=== PATIENT | male | born 1930 | race Caucasian/White ===

== ENCOUNTER 2018-12-10 08:25 | Day surgery (SDC) | payer OTHER ==
[~2018-12-10] VITALS: Ht 172.7 cm; Wt 92.1 kg
[~2018-12-10 08:25] MED LIST: ALLO300 PO; ATEN25 PO; Glipizide-Metf1 EAC2 PO; LOTENSIN HCT 21 EAC1 PO; RANI150 PO; SIMV40 PO
--- NOTE | 2018-12-10 09:47 | NUR ---
12/10/18 0947 Izzy Shane 1 IV MISS IN RH BY RONNY VALVE 1 GOOD IV IN RH BY RONNY PT TOW
--- NOTE | 2018-12-10 10:47 | NUR ---
12/10/18 1047 Winsome Mckeon DILATORS: BALLOON SIZES 10, 12; ATTEMPTED SAVORY 20, UNABLE TO PASS [place] SIZES 54, 60.
--- NOTE | 2018-12-10 11:06 | NUR ---
12/10/18 1106 Winsome Mckeon WHEN ASKED PT. IF HE HAD ANY SORE THROAT PT. STATED, "NOT SORE, SORE, BUT FEELS LIKE SOMETHINGS BEEN DONE." PT. DENIES TROUBLING SWALLOWING. PT. DRINKING APPLE JUICE.
== END 2018-12-10 11:17 | disposition home or self-care (01) ==
LOC: ORSCSDS 08:25
PROVIDERS: Internal Medicine Gastroenterology
PROC: 0D758ZZ Dilation of Esophagus, Via Natural or Artificial Opening Endoscopic (ICD-10-PCS; principal; 2018-12-10 10:15)
DX: R13.10 Dysphagia, unspecified (principal); K22.2 Esophageal obstruction; K20.9 Esophagitis, unspecified; R09.89 Other specified symptoms and signs involving the circulatory and respiratory systems; R12 Heartburn; I10 Essential (primary) hypertension; E11.9 Type 2 diabetes mellitus without complications; Z87.891 Personal history of nicotine dependence; Z79.84 Long term (current) use of oral hypoglycemic drugs; Z79.899 Other long term (current) drug therapy
CPT/HCPCS: 82947; C1726; J2704; J7120

== ENCOUNTER → 2020-05-11 | Outpatient (CLI) | payer OTHER | END | disposition home or self-care (01) | LOC: PLD 15:23 → LAB SHORT 15:23 | DX: C44.311 Basal cell carcinoma of skin of nose (principal); L57.0 Actinic keratosis; L82.1 Other seborrheic keratosis; L57.8 Other skin changes due to chronic exposure to nonionizing radiation | CPT/HCPCS: 88305 ==

== ENCOUNTER 2020-07-02 11:47 | Emergency (ER) | payer OTHER ==
[~2020-07-02] VITALS: Ht 172.7 cm; Wt 95.2 kg
== END 2020-07-02 16:26 | disposition home or self-care (01) ==
LOC: ER 11:47
DX: D32.0 Benign neoplasm of cerebral meninges (principal); E11.9 Type 2 diabetes mellitus without complications; I10 Essential (primary) hypertension; J45.909 Unspecified asthma, uncomplicated; Z87.898 Personal history of other specified conditions; Z79.84 Long term (current) use of oral hypoglycemic drugs; Z79.899 Other long term (current) drug therapy; Z88.6 Allergy status to analgesic agent
CPT/HCPCS: 70450; 99284-25

== ENCOUNTER 2020-08-14 13:46 | Inpatient (IN) | payer OTHER ==
[~2020-08-14] VITALS: Ht 172.7 cm; Wt 81.7 kg
[~2020-08-14 13:46] MED LIST changes: -ALLO300 PO; -ATEN25 PO; -Glipizide-Metf1 EAC2 PO; -LOTENSIN HCT 21 EAC1 PO; -SIMV40 PO
[2020-08-14 14:12] LABS: Source, Urine Catheter
[2020-08-14 14:21] LABS: Appearance, Urine Clear (Clear); Bilirubin, Urine Neg (Neg); Blood, Urine 5+ (Neg); Color, Urine Yellow (P-Yellow); Glucose Qualitative, Urine 2+ (Neg); Ketones, Urine 1+ (Neg); Leukocyte Esterase, Urine Neg (Neg); Nitrite, Urine Neg (Neg); Protein, Urine 3+ (Neg); Specific Gravity, Urine 1.015 (1.003-1.022); Urobilinogen, Urine NORM (Normal)
[2020-08-14 14:23] LABS: BASOPHILS ABSOLUTE AUTO 0.08 K/mm3 (0.00-0.23); BASOPHILS PERCENT AUTO 0 % (0-2); EOSINOPHILS ABSOLUTE AUTO 0.04 K/mm3 (0.00-0.68); EOSINOPHILS PERCENT AUTO 0 % (0-6); Hematocrit 50.3 % (37.0-53.0); Hemoglobin 15.6 g/dL (13.5-17.5); IMMATURE GRAN ABSOLUTE AUTO 0.43 K/mm3 (0.00-0.10); IMMATURE GRAN PERCENT AUTO 2 % (0-1); LYMPHOCYTES ABSOLUTE AUTO 1.18 K/mm3 (0.84-5.20); LYMPHOCYTES PERCENT AUTO 6 % (21-46); MONOCYTES ABSOLUTE AUTO 2.49 K/mm3 (0.16-1.47); MONOCYTES PERCENT AUTO 12 % (4-13); Mean Corpuscular HGB 27.2 pg (26.0-34.0); Mean Corpuscular Volume 88 fL (80-100); NEUTROPHILS ABSOLUTE AUTO 16.38 K/mm3 (1.96-9.15); NEUTROPHILS PERCENT AUTO 80 % (41-73); Platelet Count 374 K/mm3 (150-400); RDW Coefficient Variation 15.5 % (11.7-14.2); RDW Standard Deviation 49.6 fL (35.1-46.3); Red Blood Cell Count 5.73 M/mm3 (4.30-5.90)
[2020-08-14 14:36] LABS: Bacteria Rare /hpf; Red Blood Cells, Urine TNTC /hpf (0-2); Squamous Epithelial Cells Not Seen /hpf (Few); White Blood Cells, Urine 0-2 /hpf (0-5)
[2020-08-14 14:47] LABS: Albumin/Globulin Ratio 0.7 (0.8-1.8); Bilirubin, Total 0.6 mg/dL (0.1-1.0); Bun/Creatinine Ratio 18.8 (12.0-20.0); Calcium, Blood 8.8 mg/dL (8.5-10.1); Creatinine, Blood 1.49 mg/dL (0.60-1.20); Globulin, Blood 4.2 g/dL (2.2-4.0); Potassium, Blood 4.4 mmol/L (3.5-5.5); Total Protein, Blood 7.2 g/dL (6.4-8.2)
[2020-08-14] MEDS ORDERED: DEPAKOTE ER500 MG PO (16:10)
[2020-08-14] MEDS ORDERED: ALLO300 PO (16:11)
[2020-08-14] MEDS ORDERED: SIMV40 PO (16:11)
[2020-08-14] MEDS ORDERED: ATEN25 PO (16:11)
[2020-08-14] MEDS ORDERED: LOTENSIN HCT 21 EAC2 PO (16:12)
[2020-08-14] MEDS ORDERED: GLIPIZIDE-METF1 EAC1 PO (16:12)
[2020-08-14] MEDS ORDERED: PANT20 PO (16:14)
[2020-08-14 17:06] LABS: Influenza A, PCR Negative (NEGATIVE); Influenza B, PCR Negative (NEGATIVE); Resp Syncytial Virus, PCR Negative (NEGATIVE); SARS-Cov-2 (COVID-19) PCR, MMC Negative (NEGATIVE)
--- NOTE | 2020-08-14 19:15 | NUR ---
ASSUMED CARE RECEIVED REPORT FROM AMMY VELÁZQUEZ. REPORTED THAT PT HAD ARRIVED TO FLOOR RECENTLY. PT RESTING COMFORTABLY, NO S/S ACUTE DISTRESS NOTED, RESPS E/U. PT DENIES PAIN OR NEEDS AT THIS TIME. CALL LIGHT, POSSESSIONS IN REACH, BED IN LOW POSITION WITH ALARMS ON. WCTM.
--- NOTE | 2020-08-14 20:23 | NUR ---
a+o, call light in reach, rm air, saline locked, bsr shared with noc nurse, pt arrived after 1829
--- NOTE | 2020-08-14 22:25 | NUR ---
THIS RN SPEAKING TO PT DAUGHTER, UPDATING ON PT CONDITION. VERBAL CONSENT OBTAINED FROM PT. DAUGHTER REQUESTING TO BE CONTACTED FOR CHANGES OR UPDATES IN PT CONDITION; PLANS TO BE IN TOWN TO SEE PT ON SUNDAY. QUESTIONS AND CONCERNS ADDRESSED, PROVIDED LISTENING EAR. DAUGHTER WILL CALL IN AM AFTER BSR FOR AN UPDATE. CONTINUE TO MONITOR.
[2020-08-14 23:48] LABS: Adenovirus Not Detected (NOT DETECT); Coronavirus 229E Not Detected (NOT DETECT); Coronavirus HKU1 Not Detected (NOT DETECT); Coronavirus NL63 Not Detected (NOT DETECT); Coronavirus OC43 Not Detected (NOT DETECT)
[2020-08-14 23:49] LABS: Bordetella pertussis Not Detected (NOT DETECT); Chlamydophila pneumoniae Not Detected (NOT DETECT); Human Metapneumovirus Not Detected (NOT DETECT); Human Rhinovirus/Enterovirus Not Detected (NOT DETECT); Influenza A/2009-H1 Not Detected (NOT DETECT); Influenza A/H1 Not Detected (NOT DETECT); Influenza A/H3 Not Detected (NOT DETECT); Influenza B Not Detected (NOT DETECT); Mycoplasma pneumoniae Not Detected (NOT DETECT); Parainfluenza Virus 1 Not Detected (NOT DETECT); Parainfluenza Virus 2 Not Detected (NOT DETECT); Parainfluenza Virus 3 Not Detected (NOT DETECT); Parainfluenza Virus 4 Not Detected (NOT DETECT); Respiratory Syncytial Virus Not Detected (NOT DETECT); SARS-Cov-2 (COVID-19), BioFire Not Detected (NOT DETECT)
[2020-08-15 04:19] LABS: BASOPHILS ABSOLUTE AUTO 0.08 K/mm3 (0.00-0.23); BASOPHILS PERCENT AUTO 0 % (0-2); EOSINOPHILS ABSOLUTE AUTO 0.01 K/mm3 (0.00-0.68); EOSINOPHILS PERCENT AUTO 0 % (0-6); Hematocrit 46.8 % (37.0-53.0); Hemoglobin 14.4 g/dL (13.5-17.5); IMMATURE GRAN ABSOLUTE AUTO 0.36 K/mm3 (0.00-0.10); IMMATURE GRAN PERCENT AUTO 2 % (0-1); LYMPHOCYTES ABSOLUTE AUTO 2.62 K/mm3 (0.84-5.20); LYMPHOCYTES PERCENT AUTO 14 % (21-46); MONOCYTES ABSOLUTE AUTO 2.66 K/mm3 (0.16-1.47); MONOCYTES PERCENT AUTO 14 % (4-13); Mean Corpuscular HGB 26.4 pg (26.0-34.0); Mean Corpuscular HGB Conc 30.8 g/dL (31.5-36.5); Mean Corpuscular Volume 86 fL (80-100); Mean Platelet Volume 10.8 fL (9.1-12.4); NEUTROPHILS ABSOLUTE AUTO 13.47 K/mm3 (1.96-9.15); NEUTROPHILS PERCENT AUTO 70 % (41-73); Platelet Count 417 K/mm3 (150-400); RDW Coefficient Variation 15.5 % (11.7-14.2); Red Blood Cell Count 5.45 M/mm3 (4.30-5.90)
[2020-08-15 04:38] LABS: Bun/Creatinine Ratio 19.6 (12.0-20.0); Calcium, Blood 8.6 mg/dL (8.5-10.1); Creatinine, Blood 1.48 mg/dL (0.60-1.20); Potassium, Blood 3.7 mmol/L (3.5-5.5)
--- NOTE | 2020-08-15 05:52 | NUR ---
SHIFT SUMMARY PT A&O TO SELF, SURROUNDINGS, FAMILY. PLEASANT AND COOPERATIVE. ASLEEP AT THIS TIME, NO S/S ACUTE DISTRESS NOTED. WAS MONITORED EVERY 1-2 HOURS WITH NEEDS MET. PT NPO D/T ASPIRATION RISK, PT UNHAPPY ABOUT THIS. PROVIDED LISTENING EAR. AWAITING ST EVAL. PT APPEARS INCREASINGLY CONFUSED AT TIMES, ASKING TO GET OOB AND WALK AROUND ROOM; RE-DIRECTABLE. VS REVIEWED, HYPERTENSIVE; MEDICATED PER EMAR X2 THIS SHIFT. BP'S STABLE AT THIS TIME. PT DENIES PAIN OR NEEDS AT THIS TIME. CALL LIGHT, POSSESSIONS IN REACH, BED IN LOW POSITION WITH ALARMS ON. IVF ONGOING. WCTM, PROVIDE CARE UNTIL REPORT GIVEN TO ONCOMING RN.
--- NOTE | 2020-08-15 17:28 | NUR ---
PT IS AOX3 AND COOPERATIVE OF CARE. PT DOING WELL AND DENIES ANY PAIN. PT HAS BEEN ABLE TO WORK WITH PT TODAY AND IS AMBULATING WITH WALKER AND GAITBELT TO RESTROOM. PT HAS ALSO BEEN UP IN CHAIR. PT IS USING HIS CALL LIGHT APPROPRIATELY. BED ALARM IS IN PLACE AND CALL LIGHT IS WITHIN REACH.
--- NOTE | 2020-08-15 18:02 | NUR ---
RN BEDSIDE SWALLOW EVAL: PER DR. WILLINGHAM, RN TO ASSESS SWALLOW AND FEED THE PT THIS EVENING IF ABLE. PT ABLE TO DRINK APPLE JUICE FROM CUP WITH AND WITHOUT A STRAW SITTING UPRIGHT IN BED. ALSO TRIALED APPLESAUCE, PUDDING, AND CRACKERS WITH NO COUGHING NOTED. PT ABLE TO SAY "AHH" AFTER EACH BITE WITH NO WETNESS/GURGLE NOTED. PT ABLE TO FOLLOW DIRECTIONS AND FEED SELF. REQUESTED HALF A SANDWICH FOR DINNER. THIS RN ORDERED ADA BREAKFAST FOR TOMORROW PT STATED HE DIDN'T WANT A TRAY TONIGHT. UPDATED BEDSIDE RN SHIMA.
--- NOTE | 2020-08-15 19:00 | NUR ---
ASSUMED CARE RECEIVED REPORT FROM AMMY RONQUILLO. ASSUMED CARE OF PT. RESTING COMFORTABLY, NO S/S ACUTE DISTRESS NOTED, ASLEEP AT THIS TIME. CALL LIGHT, POSSESSIONS IN REACH, BED IN LOW POSITION WITH ALARMS ON . TM.
--- NOTE | 2020-08-15 23:45 | NUR ---
SPOKE TO DR. BERGER REGARDING PT'S HR TRENDING IN THE 50'S. PARAMETERS RECEIVED FOR YEISON. CONTINUE TO MONITOR.
[2020-08-16 05:38] LABS: BASOPHILS ABSOLUTE AUTO 0.09 K/mm3 (0.00-0.23); BASOPHILS PERCENT AUTO 1 % (0-2); EOSINOPHILS PERCENT AUTO 1 % (0-6); Hematocrit 43.7 % (37.0-53.0); Hemoglobin 13.9 g/dL (13.5-17.5); IMMATURE GRAN ABSOLUTE AUTO 0.51 K/mm3 (0.00-0.10); IMMATURE GRAN PERCENT AUTO 5 % (0-1); LYMPHOCYTES ABSOLUTE AUTO 2.37 K/mm3 (0.84-5.20); LYMPHOCYTES PERCENT AUTO 22 % (21-46); MONOCYTES ABSOLUTE AUTO 1.66 K/mm3 (0.16-1.47); MONOCYTES PERCENT AUTO 16 % (4-13); Mean Corpuscular HGB 27.3 pg (26.0-34.0); Mean Corpuscular HGB Conc 31.8 g/dL (31.5-36.5); Mean Corpuscular Volume 86 fL (80-100); Mean Platelet Volume 10.8 fL (9.1-12.4); NEUTROPHILS ABSOLUTE AUTO 5.97 K/mm3 (1.96-9.15); NEUTROPHILS PERCENT AUTO 56 % (41-73); Platelet Count 361 K/mm3 (150-400); RDW Coefficient Variation 15.7 % (11.7-14.2); RDW Standard Deviation 48.6 fL (35.1-46.3); Red Blood Cell Count 5.09 M/mm3 (4.30-5.90)
[2020-08-16 06:13] LABS: Albumin, Blood 2.6 g/dL (3.4-5.0); Albumin/Globulin Ratio 0.7 (0.8-1.8); Bilirubin, Total 0.3 mg/dL (0.1-1.0); Bun/Creatinine Ratio 25.7 (12.0-20.0); Calcium, Blood 8.3 mg/dL (8.5-10.1); Creatinine, Blood 1.48 mg/dL (0.60-1.20); Globulin, Blood 3.5 g/dL (2.2-4.0); Potassium, Blood 3.7 mmol/L (3.5-5.5); Thyroid Stimulating Hormone 3.45 uIU/mL (0.360-4.800); Total Protein, Blood 6.1 g/dL (6.4-8.2)
--- NOTE | 2020-08-16 06:41 | NUR ---
SHIFT SUMMARY PT ASLEEP, HAS BEEN DROWSY T/O MUCH OF THE NIGHT; EASILY AROUSABLE, PLEASANT AND COOPERATIVE. VS REVIEWED, BP'S AND HR STABLE. PT HR APPEARS TO TREND IN 50'S WHEN ASLEEP, PT ASYMPTOMATIC. CBGS STABLE, NO COVERAGE NEEDED T/O NIGHT, TAKES SOFT DIET W/O DIFFICULTY, NO S/S ASPIRATION. DENIES PAIN OR DISCOMFORT. APPEARS COMFORTABLE AT THIS TIME. DENIES NEEDS. CALL LIGHT AND POSSESSIONS IN REACH, BED IN LOW POSITION WITH ALARMS ON. WCTM, REPORT OFF TO ONCOMING RN.
[2020-08-16] MEDS ORDERED: AMOCLA500 PO (15:37)
--- NOTE | 2020-08-16 17:03 | NUR ---
PT AO X4 AND COOPERATIVE OF CARE. PT DISCHARGED HOME WITH DAUGHTER TO LIVE WITH HIM AND HIS WHILE HE GETS BETTER. DAUGHTER TRANSPORTED PT HOME. ALL PAPERWORK WAS REVIEWED AND EDUCATIONAL MATERIAL SENT WITH PT. NO DISTRESS WAS NOTED AND PT HAS BEEN WORKING WELL WITH PHYSICAL THERAPY AND OT TODAY. PERSONAL BELONGINGS COLLECTED AND TAKEN WITH PT.
== END 2020-08-16 16:47 | disposition home health service (06) | DRG 871 ==
LOC: ER 13:46 → MEDS 16:35
PROVIDERS: Internal Medicine; Nurse Practitioner Acute Care; Physician Assistant; ADMIT Internal Medicine
DX: A41.9 Sepsis, unspecified organism (principal); J18.9 Pneumonia, unspecified organism; G93.41 Metabolic encephalopathy; I12.9 Hypertensive chronic kidney disease with stage 1 through stage 4 chronic kidney disease, or unspecified chronic kidney disease; Z51.5 Encounter for palliative care; E11.22 Type 2 diabetes mellitus with diabetic chronic kidney disease; R13.10 Dysphagia, unspecified; N18.31 Chronic kidney disease, stage 3a; Z91.81 History of falling; E78.5 Hyperlipidemia, unspecified; K21.9 Gastro-esophageal reflux disease without esophagitis; E66.9 Obesity, unspecified; Z68.30 Body mass index [BMI] 30.0-30.9, adult; Z87.891 Personal history of nicotine dependence; Z20.828 Contact with and (suspected) exposure to other viral communicable diseases
CPT/HCPCS: 0202U; 0241U; 36415; 71045; 80048; 80053; 81001; 82607; 82746; 82947; 83605; 84443; 84484; 85025; 92610; 93005; 93010; 94640; 94760; 94762; 96365; 96367; 97110; 97116; 97161; 97166; 97535; 99285-25; A9270-GY; C1751; C9113; J0360; J0456; J0696; J1650; J7030; J7050

== ENCOUNTER → 2020-09-01 | Outpatient (CLI) | payer OTHER ==
[~2020-09-01] MED LIST changes: +ALLO300 PO; +AMLO10 PO; +AMOCLA500 PO; +ATEN25 PO; +DEPAKOTE ER500 MG PO; +GLIPIZIDE-METF1 EAC1 PO; +HYDRA25 PO; +LOSA50 PO; +LOTENSIN HCT 21 EAC2 PO; +PANT20 PO; +SIMV40 PO
[2020-09-01 12:32] LABS: Source, Urine Clean Catch
[2020-09-01 13:07] LABS: Appearance, Urine Clear (Clear); Bilirubin, Urine Neg (Neg); Blood, Urine Neg (Neg); Color, Urine Yellow (P-Yellow); Glucose Qualitative, Urine Neg (Neg); Ketones, Urine Neg (Neg); Leukocyte Esterase, Urine 1+ (Neg); Nitrite, Urine Neg (Neg); Protein, Urine 3+ (Neg); Specific Gravity, Urine 1.015 (1.003-1.022); Urobilinogen, Urine NORM (Normal)
[2020-09-01 13:38] LABS: Bacteria Rare /hpf; Mucus Light (0-Heavy); Red Blood Cells, Urine Not Seen /hpf (0-2); Squamous Epithelial Cells Rare /hpf (Few); White Blood Cells, Urine 0-2 /hpf (0-5)
== END | disposition home or self-care (01) ==
LOC: LAB HH 12:30
PROVIDERS: Family Medicine
DX: N39.0 Urinary tract infection, site not specified (principal)
CPT/HCPCS: 81001; 87086

== ENCOUNTER 2020-10-29 13:27 | Emergency (ER) | payer OTHER ==
[~2020-10-29] VITALS: Ht 182.9 cm; Wt 95.2 kg
[~2020-10-29 13:27] MED LIST changes: -AMLO10 PO; -HYDRA25 PO; -LOSA50 PO
[2020-10-29] MEDS ORDERED: AMLO10 PO (13:41)
[2020-10-29] MEDS ORDERED: LOSA50 PO (13:41)
[2020-10-29] MEDS ORDERED: HYDRA25 PO (13:42)
[2020-10-29 14:00] LABS: Calcium, Ionized (POC) 1.18 mmol/L (1.10-1.46); Chloride (POC) 107 mmol/L (98-108); Creatinine (POC) 1.5 mg/dL (0.8-1.3); Glucose (ISTAT POC) 148 mg/dL (70-99); Hemoglobin (POC) 14.3 g/dL (13.5-17.5); Potassium (POC) 4.2 mmol/L (3.5-5.5); Sodium (POC) 141 mmol/L (135-148); Total CO2 (POC) 26 mmol/L (21-32)
== END 2020-10-29 15:35 | disposition home or self-care (01) ==
LOC: ER 13:27
PROVIDERS: Emergency Medicine
DX: S09.90XA Unspecified injury of head, initial encounter (principal); I10 Essential (primary) hypertension; E78.5 Hyperlipidemia, unspecified; E11.9 Type 2 diabetes mellitus without complications; Z88.6 Allergy status to analgesic agent; W18.30XA Fall on same level, unspecified, initial encounter
CPT/HCPCS: 70450; 80047; 85014; 99284-25

== ENCOUNTER 2021-03-28 09:55 | Inpatient (IN) | payer OTHER, MEDICARE ==
[~2021-03-28] VITALS: Ht 172.7 cm; Wt 90.7 kg
[~2021-03-28 09:55] MED LIST changes: +AMLO10 PO; +HYDRA25 PO; +LOSA50 PO
[2021-03-28 14:12] LABS: BASOPHILS ABSOLUTE AUTO 0.11 K/mm3 (0.00-0.23); BASOPHILS PERCENT AUTO 1 % (0-2); EOSINOPHILS ABSOLUTE AUTO 0.32 K/mm3 (0.00-0.68); EOSINOPHILS PERCENT AUTO 3 % (0-6); Hematocrit 49.3 % (37.0-53.0); Hemoglobin 14.7 g/dL (13.5-17.5); IMMATURE GRAN PERCENT AUTO 2 % (0-1); LYMPHOCYTES PERCENT AUTO 20 % (21-46); MONOCYTES ABSOLUTE AUTO 1.42 K/mm3 (0.16-1.47); MONOCYTES PERCENT AUTO 13 % (4-13); Mean Corpuscular HGB 23.3 pg (26.0-34.0); Mean Corpuscular HGB Conc 29.8 g/dL (31.5-36.5); Mean Corpuscular Volume 78 fL (80-100); Mean Platelet Volume 11.5 fL (9.1-12.4); NEUTROPHILS ABSOLUTE AUTO 7.01 K/mm3 (1.96-9.15); NEUTROPHILS PERCENT AUTO 62 % (41-73); Platelet Count 566 K/mm3 (150-400); RDW Coefficient Variation 19.2 % (11.7-14.2); RDW Standard Deviation 50.3 fL (35.1-46.3); White Blood Cell Count 11.36 K/mm3 (4.00-11.30)
[2021-03-28 14:32] LABS: Albumin, Blood 3.2 g/dL (3.4-5.0); Albumin/Globulin Ratio 0.7 (0.8-1.8); Calcium, Blood 9.3 mg/dL (8.5-10.1); Creatinine, Blood 1.84 mg/dL (0.60-1.20); Globulin, Blood 4.6 g/dL (2.2-4.0); Potassium, Blood 4.4 mmol/L (3.5-5.5); Total Protein, Blood 7.8 g/dL (6.4-8.2)
[2021-03-28 14:54] LABS: SARS-Cov-2 (COVID-19) PCR, MMC NEGATIVE (NEGATIVE)
[2021-03-28] MEDS ORDERED: ALLO300 PO (17:16)
[2021-03-28] MEDS ORDERED: Fish Oil 340 mg-1,00 PO (17:17)
[2021-03-28] MEDS ORDERED: GLIP5 PO (17:18)
[2021-03-28] MEDS ORDERED: HYDCHL50 PO (17:19)
[2021-03-28] MEDS ORDERED: Glucophage 500 mg PO (17:21)
[2021-03-28] MEDS ORDERED: ZOCOR40 MG PO (17:22)
[2021-03-28] MEDS ORDERED: SPIR25 PO (18:08)
[2021-03-28] MEDS ORDERED: TAMS.4ER PO (18:08)
--- NOTE | 2021-03-29 04:22 | NUR ---
SHIFT SUMMARY NEW ER ADMIT THIS SHIFT (2049) NO ACUTE CHANGES SINCE ASSUMING CARE, NO C/O ANY KIND, PT IS A&OX4, DENIES PAIN/NAUSEA, PLEASANT, COOPERATIVE W/CARE, NPO SINCE ADMIT, IV FLUIDS INFUSING, IND W/URINAL IN BED, SLEPT T/O THE NIGHT & AT THIS TIME, CALL LIGHT IN REACH, WILL CONT TO MONITOR UNTIL REPORT GIVEN TO DAY RN.
[2021-03-29 05:13] LABS: BASOPHILS PERCENT AUTO 1 % (0-2); EOSINOPHILS ABSOLUTE AUTO 0.39 K/mm3 (0.00-0.68); EOSINOPHILS PERCENT AUTO 4 % (0-6); Hematocrit 44.6 % (37.0-53.0); Hemoglobin 13.6 g/dL (13.5-17.5); IMMATURE GRAN ABSOLUTE AUTO 0.24 K/mm3 (0.00-0.10); IMMATURE GRAN PERCENT AUTO 2 % (0-1); LYMPHOCYTES PERCENT AUTO 20 % (21-46); MONOCYTES ABSOLUTE AUTO 1.44 K/mm3 (0.16-1.47); MONOCYTES PERCENT AUTO 15 % (4-13); Mean Corpuscular HGB 23.3 pg (26.0-34.0); Mean Corpuscular HGB Conc 30.5 g/dL (31.5-36.5); Mean Corpuscular Volume 76 fL (80-100); Mean Platelet Volume 10.3 fL (9.1-12.4); NEUTROPHILS ABSOLUTE AUTO 5.73 K/mm3 (1.96-9.15); NEUTROPHILS PERCENT AUTO 58 % (41-73); Platelet Count 501 K/mm3 (150-400); RDW Coefficient Variation 18.8 % (11.7-14.2); RDW Standard Deviation 47.7 fL (35.1-46.3); Red Blood Cell Count 5.84 M/mm3 (4.30-5.90)
[2021-03-29 05:31] LABS: Bun/Creatinine Ratio 19.1 (12.0-20.0); Calcium, Blood 8.7 mg/dL (8.5-10.1); Creatinine, Blood 1.41 mg/dL (0.60-1.20); Potassium, Blood 3.8 mmol/L (3.5-5.5)
--- NOTE | 2021-03-29 10:16 | NUR ---
Pt resting in bed upon arrival. Pt denies pain, anxiety, nausea, and dyspnea at this time. Pt some what withdrawn and does not engage much in conversation. Reviewed plan of care with Pt and engaged in therapeutic discussion regarding code status. Gentle education on life sustaining treatments including risk factors and implications of CPR. Pt reports his wishes remain the same and is ok with CPR but does not want intubation. Pt reports that he will let staff know if his wishes change. Pt remains withdrawn and this RN ended visit. Palliative Care will remain available if called upon.
--- NOTE | 2021-03-29 14:16 | NUR ---
03/29/21 1416 Rosalie Zeng History, Chart, Medications and Allergies reviewed before start of procedure.Patient confirms NPO status and agrees with scheduled surgery.MONITOR INTACT WITH CONTINUOUS PULSE OXIMETRY AND INTERMITTENT BP.3-LEAD EKG REVIEWED WITH PHYSICIAN PRIOR TO START OF PROCEDURE.O2 VIA N/C INTACT THROUGHOUT SEDATION/PROCEDURE.PATIENT DETERMINED TO BE ASA APPROPRIATE FOR PROPOFOL SEDATION PRIOR TO START OF PROCEDURE BY
--- NOTE | 2021-03-29 17:12 | NUR ---
SHIFT SUMMARY PATIENT ALERT AND ORIENTED X4. PATIENT DENIES PAIN/NAUSEA DURING SHIFT. PATIENT HAD AN ENDOSCOPY DONE OF ESOPHAGEAL DILILATION. TOLERATED WELL. PATIENT IS COOPERATIVE WITH CARE. PATIENT IS A ONE PERSON ASSIST TO BEDSIDE COMMODE AND USES BEDSIDE URINAL. VITAL SIGNS REVIEWED. CALL LIGHT IN REACH AND BED IS LOCKED AND LOWEST POSITION.
--- NOTE | 2021-03-30 04:48 | NUR ---
SHIFT SUMMARY: PT IS ALERT AND ORIENTED. PT IS CALM AND COOPERATIVE WITH CARE. PT CALLS APPROPRIATELY. PT IS A STANDBY ASSIST. PT CONTINUES TO BE NPO PENDING BARIUM SWALLOW EVALUTAION. PT DENIES PAIN, NAUSEA, VOMITING, AND SOB. PT SLEPT MUCH OF THE NIGHT WHEN NOT DISTURBED. NO ACUTE CHANGES OR COMPLICATIONS THIS SHIFT. BED IN LOW POSITION, CALL LIGHT WITHIN REACH. WILL REPORT TO DAY NURSE.
[2021-03-30 06:17] LABS: Bun/Creatinine Ratio 16.1 (12.0-20.0); Calcium, Blood 9.2 mg/dL (8.5-10.1); Creatinine, Blood 1.37 mg/dL (0.60-1.20); Potassium, Blood 3.9 mmol/L (3.5-5.5)
--- NOTE | 2021-03-30 13:01 | NUR ---
SWALLOW EVAL faxed to [facility] along with d'c meds. APPOINTMENT MADE FOR F/U W/ 04/04/21 AT 10:50. PATIENT AWARE OF APPT AND NO CHANGES IN MEDS.REVIEW D'C WITH PATIENT ANSWER ALL QUESTIONS. REVIEWS SWALLOWING PRECAUTIONS. PATIENT VERBALIZES UNDERSTANDING. DAUGHTER TO ARRANGE RIDE BACK TO [facility]. AWAITING RIDE. TROLLEY COACH DRIVER ASSIST IN GETTING PATIENT DRESSED. HAD LUNCH HERE WITHOUT DIFFICULTY.
== END 2021-03-30 13:25 | disposition home or self-care (01) | DRG 392 ==
LOC: ER 09:55 → ERHOLD 09:56 → MEDS 09:56
PROVIDERS: Internal Medicine Gastroenterology; Physician Assistant; Student in an Organized Health Care Education/Training Program; ADMIT Internal Medicine
PROC: 0D718ZZ Dilation of Upper Esophagus, Via Natural or Artificial Opening Endoscopic (ICD-10-PCS; principal; 2021-03-29 14:00)
DX: R13.13 Dysphagia, pharyngeal phase (principal); N17.9 Acute kidney failure, unspecified; K21.9 Gastro-esophageal reflux disease without esophagitis; K22.8 Other specified diseases of esophagus; I12.9 Hypertensive chronic kidney disease with stage 1 through stage 4 chronic kidney disease, or unspecified chronic kidney disease; E78.5 Hyperlipidemia, unspecified; J45.909 Unspecified asthma, uncomplicated; E11.22 Type 2 diabetes mellitus with diabetic chronic kidney disease; K44.9 Diaphragmatic hernia without obstruction or gangrene; Z20.822 Contact with and (suspected) exposure to COVID-19; N18.31 Chronic kidney disease, stage 3a; M10.9 Gout, unspecified; Z86.011 Personal history of benign neoplasm of the brain; Z98.890 Other specified postprocedural states; Z86.010 Personal history of colon polyps; Z79.84 Long term (current) use of oral hypoglycemic drugs; Z79.899 Other long term (current) drug therapy; Z98.49 Cataract extraction status, unspecified eye; Z87.891 Personal history of nicotine dependence; Z88.6 Allergy status to analgesic agent
CPT/HCPCS: 36415; 70360; 74230; 80048; 80053; 82947; 85025; 92611; 96360; 96361; 96374; 96375; 99285-25; A9270; C9113; G0378; J0360; J2704; J7030; J7120; U0004

== ENCOUNTER → 2021-07-12 | Outpatient (CLI) | payer OTHER ==
[~2021-07-12] MED LIST changes: +Fish Oil 340 mg-1,00 PO; +GLIP5 PO; +Glucophage 500 mg PO; +HYDCHL50 PO; +SPIR25 PO; +TAMS.4ER PO; +ZOCOR40 MG PO
[2021-07-12 15:35] LABS: Appearance, Urine Clear (Clear); Bilirubin, Urine Neg (Neg); Blood, Urine Neg (Neg); Color, Urine Yellow (P-Yellow); Glucose Qualitative, Urine Neg (Neg); Ketones, Urine Neg (Neg); Leukocyte Esterase, Urine 1+ (Neg); Nitrite, Urine Neg (Neg); Protein, Urine 2+ (Neg); Specific Gravity, Urine 1.015 (1.003-1.022); Urobilinogen, Urine NORM (Normal)
[2021-07-12 15:49] LABS: Bacteria Few /hpf; Red Blood Cells, Urine 0-2 /hpf (0-2); Squamous Epithelial Cells Rare /hpf (Few)
== END ==
LOC: LAB SHORT 13:30
PROVIDERS: Family Medicine
DX: R30.0 Dysuria (principal); Z88.8 Allergy status to other drugs, medicaments and biological substances
CPT/HCPCS: 81001

== ENCOUNTER → 2021-08-24 | Outpatient (CLI) | payer OTHER ==
[2021-08-24 13:21] LABS: Appearance, Urine Clear (Clear); Bilirubin, Urine Neg (Neg); Blood, Urine Neg (Neg); Color, Urine Yellow (P-Yellow); Glucose Qualitative, Urine 4+ (Neg); Ketones, Urine Neg (Neg); Leukocyte Esterase, Urine Neg (Neg); Nitrite, Urine Neg (Neg); Protein, Urine 3+ (Neg); Urobilinogen, Urine NORM (Normal)
[2021-08-24 13:49] LABS: Red Blood Cells, Urine 0-2 /hpf (0-2); White Blood Cells, Urine 0-2 /hpf (0-5)
[2021-08-24 13:50] LABS: Amorphous Light (0-Heavy); Bacteria Rare /hpf; Mucus Light (0-Heavy); Squamous Epithelial Cells Rare /hpf (Few)
== END | disposition home or self-care (01) ==
LOC: LAB SHORT 10:35
PROVIDERS: Family Medicine
DX: N39.0 Urinary tract infection, site not specified (principal)
CPT/HCPCS: 81001; 87077; 87086; 87186

== ENCOUNTER → 2021-11-17 | Outpatient (CLI) | payer OTHER ==
[~2021-11-17] MED LIST changes: +ACET500 PO; +ALMACONE SUSPE355 ML PO; +BISA10S PR; +Calcium Carbon500 MG PO; +DULCOLAX400 MG/5 M PO; +Flonase 0.05% N16 GM; +Ginger250 MG PO; +LOPE2C PO; +OCEAN104 ML; +ONDA4 PO; +Pepcid20 MG PO; +TUSSIN MUC100 MG/5 M PO
== END | disposition home or self-care (01) ==
LOC: PLD 13:06 → LAB SHORT 13:06
DX: C44.622 Squamous cell carcinoma of skin of right upper limb, including shoulder (principal)
CPT/HCPCS: 88305

== ENCOUNTER 2021-12-07 10:12 | Emergency (ER) | payer OTHER ==
[~2021-12-07] VITALS: Ht 172.7 cm; Wt 88.0 kg
[~2021-12-07 10:12] MED LIST changes: -ACET500 PO; -ALMACONE SUSPE355 ML PO; -BISA10S PR; -Calcium Carbon500 MG PO; -DULCOLAX400 MG/5 M PO; -Flonase 0.05% N16 GM; -LOPE2C PO; -OCEAN104 ML; -ONDA4 PO; -Pepcid20 MG PO; -TUSSIN MUC100 MG/5 M PO
[2021-12-07 11:37] LABS: BASOPHILS ABSOLUTE AUTO 0.13 K/mm3 (0.00-0.23); BASOPHILS PERCENT AUTO 1 % (0-2); EOSINOPHILS ABSOLUTE AUTO 0.15 K/mm3 (0.00-0.68); EOSINOPHILS PERCENT AUTO 2 % (0-6); Hematocrit 49.4 % (37.0-53.0); Hemoglobin 15.1 g/dL (13.5-17.5); IMMATURE GRAN ABSOLUTE AUTO 1.37 K/mm3 (0.00-0.10); IMMATURE GRAN PERCENT AUTO 15 % (0-1); LYMPHOCYTES ABSOLUTE AUTO 2.55 K/mm3 (0.84-5.20); LYMPHOCYTES PERCENT AUTO 28 % (21-46); MONOCYTES ABSOLUTE AUTO 1.21 K/mm3 (0.16-1.47); MONOCYTES PERCENT AUTO 13 % (4-13); Mean Corpuscular HGB 22.1 pg (26.0-34.0); Mean Corpuscular HGB Conc 30.6 g/dL (31.5-36.5); Mean Corpuscular Volume 72 fL (80-100); Mean Platelet Volume 11.2 fL (9.1-12.4); NEUTROPHILS ABSOLUTE AUTO 3.67 K/mm3 (1.96-9.15); NEUTROPHILS PERCENT AUTO 40 % (41-73); Platelet Count 594 K/mm3 (150-400); RDW Coefficient Variation 18.2 % (11.7-14.2); RDW Standard Deviation 42.9 fL (35.1-46.3); Red Blood Cell Count 6.82 M/mm3 (4.30-5.90); White Blood Cell Count 9.08 K/mm3 (4.00-11.30)
[2021-12-07 11:55] LABS: Albumin/Globulin Ratio 0.7 (0.8-1.8); Bilirubin, Total 0.7 mg/dL (0.1-1.0); Bun/Creatinine Ratio 15.3 (12.0-20.0); Creatinine, Blood 2.29 mg/dL (0.60-1.20); Globulin, Blood 4.3 g/dL (2.2-4.0); Potassium, Blood 4.2 mmol/L (3.5-5.5); Total Protein, Blood 7.3 g/dL (6.4-8.2)
[2021-12-07] MEDS ORDERED: Pepcid20 MG PO (13:34)
[2021-12-07 13:49] LABS: Source, Urine Clean Catch
[2021-12-07 13:52] LABS: Appearance, Urine Clear (Clear); Bilirubin, Urine Neg (Neg); Blood, Urine Neg (Neg); Color, Urine Yellow (P-Yellow); Glucose Qualitative, Urine 3+ (Neg); Ketones, Urine Neg (Neg); Leukocyte Esterase, Urine Neg (Neg); Nitrite, Urine Neg (Neg); Protein, Urine 3+ (Neg); Urobilinogen, Urine NORM (Normal)
[2021-12-07 14:00] LABS: Bacteria Not Seen /hpf; Red Blood Cells, Urine Not Seen /hpf (0-2); Squamous Epithelial Cells Rare /hpf (Few); White Blood Cells, Urine Not Seen /hpf (0-5)
== END 2021-12-07 14:55 | disposition home or self-care (01) ==
LOC: ER 10:12
PROVIDERS: Physician Assistant
DX: I12.9 Hypertensive chronic kidney disease with stage 1 through stage 4 chronic kidney disease, or unspecified chronic kidney disease (principal); E11.22 Type 2 diabetes mellitus with diabetic chronic kidney disease; N18.30 Chronic kidney disease, stage 3 unspecified; K21.9 Gastro-esophageal reflux disease without esophagitis; E78.00 Pure hypercholesterolemia, unspecified; Z79.899 Other long term (current) drug therapy
CPT/HCPCS: 36415; 80053; 81001; 85025; 99283